=== PATIENT | female | born 2000 | race Caucasian/White ===

== ENCOUNTER 2020-09-20 12:58 | Emergency (ER) | payer BC ==
[2020-09-20 13:23] VITALS: BMI 25.1
[2020-09-20] MEDS ORDERED: SODIUM CHLORIDE 0.9% 500 ML INFUS.BAG IV ONE (14:12)
[2020-09-20] MEDS ORDERED: ONDANSETRON 4 MG/2 ML VIAL IVPUSH ONE (14:12)
[2020-09-20] MEDS ORDERED: PANTOPRAZOLE SODIUM 40 MG VIAL IVPUSH ONE (14:12)
[2020-09-20] MEDS ORDERED: MAG HYDROX/AL HYDROX/SIMETH -MYLANTA- ORAL SUSPENSION PO ONE (14:15)
[2020-09-20] MEDS ORDERED: ONDANSETRON 4 MG/2 ML VIAL ONE (14:37)
[2020-09-20] MEDS ORDERED: PANTOPRAZOLE SODIUM 40 MG/100 ML BAG IVPB ONE (14:37)
[2020-09-20] MEDS ORDERED: MAG HYDROX/AL HYDROX/SIMETH 30 ML UNIT-DOSE CUP ONE (14:38)
[2020-09-20 15:04] LABS: EPI CELLS 12 /uL (0-25.1); HYALINE CASTS 3 /uL (0-3.1); URINE APPEARANCE CLOUDY; URINE BACTERIA 1141 /uL (0-1359); URINE BILIRUBIN NEGATIVE (NEGATIVE); URINE COLOR ORANGE; URINE GLUCOSE (UA) NEGATIVE (NEGATIVE); URINE KETONE 1+ (NEGATIVE); URINE LEUK ESTERASE 1+ (NEGATIVE); URINE NITRITE NEGATIVE (NEGATIVE); URINE PROTEIN 1+ (NEGATIVE); URINE RBC 169 /uL (0-23.9); URINE WBC 167 /uL (0-25.8)
[2020-09-20 15:11] LABS: CALCIUM 9.2 mg/dL (8.5-10.1)
[2020-09-20 15:12] LABS: ALBUMIN 4.6 g/dl (3.4-5.0); BLOOD UREA NITROGEN 6.9 mg/dL (7-18)
[2020-09-20 15:15] LABS: CREATININE 0.7 mg/dL (0.55-1.3)
[2020-09-20 15:16] LABS: BILIRUBIN,TOTAL 1.2 mg/dL (0.2-1); TOT PROT 8.1 g/dl (6.4-8.2)
[2020-09-20 15:29] VITALS: BP 110/70; PULSE 97; TEMP 100
== END 2020-09-20 15:30 | disposition home or self-care (01) ==
LOC: JER 12:58
PROC: 3E033GC Introduction of Other Therapeutic Substance into Peripheral Vein, Percutaneous Approach (ICD-10-PCS; principal; 2020-09-20)
PROC: 3E033GC Introduction of Other Therapeutic Substance into Peripheral Vein, Percutaneous Approach (ICD-10-PCS; 2020-09-20)
DX: N39.0 Urinary tract infection, site not specified (principal)
CPT/HCPCS: 80053; 81003; 83690; 84703; 87086; 99284-25

== ENCOUNTER 2023-11-16 23:04 | Emergency (ER) | payer BC ==
[2023-11-16 23:10] VITALS: BP 123/77; PULSE 78; RESP 18; TEMP 98.5; BMI 26.4
== END 2023-11-17 00:21 | disposition home or self-care (01) ==
LOC: JER 23:04
DX: F43.9 Reaction to severe stress, unspecified (principal); R00.2 Palpitations; R07.9 Chest pain, unspecified
CPT/HCPCS: 93005; 93010; 99284-25